=== PATIENT | female | born 1950 | race Caucasian/White ===

== ENCOUNTER → 2024-09-16 | Day surgery (SDC) | payer MEDICARE, OTHER ==
[~2024-09-16] MED LIST: Dexamethasone 4 MG/ML SDV ONE; Ondansetron 4 MG/2 ML SDV ONE; Propofol 200 MG/20 ML SDV ONE; fentaNYL 100 MCG/2 ML SDV ONE
[2024-09-16] MEDS: Lactated Ringers 1,000 ML IV SCH (08:30)
[2024-09-16] MEDS: Scopalamine 1mg/3day Transdermal Patch TOP SCH (08:38)
[2024-09-16 10:38] VITALS: BP 144/78; PULSE 97
== END ==
LOC: JP.SDS 07:50
PROVIDERS: ATTEND Surgery
DX: K92.1 Melena (principal); K31.89 Other diseases of stomach and duodenum; I10 Essential (primary) hypertension; J45.909 Unspecified asthma, uncomplicated; Z79.899 Other long term (current) drug therapy; Z88.2 Allergy status to sulfonamides; R93.3 Abnormal findings on diagnostic imaging of other parts of digestive tract; K59.00 Constipation, unspecified; R91.8 Other nonspecific abnormal finding of lung field
CPT/HCPCS: 00811; 45380; 74174; 88305; A9270; J1100; J2405; J2704; J3010; J7120; Q9967